=== PATIENT | female | born 1980 | race Caucasian/White ===

== ENCOUNTER 2019-10-04 12:33 | Inpatient (IN) | payer OTHER ==
[~2019-10-04] VITALS: Ht 172.7 cm; Wt 106.8 kg
[~2019-10-04 12:33] MED LIST: IBUP-1222 PO; LEVO150T5 PO; OXYC-302 PO; PREN1TAB60 PO
[2019-11-04] MEDS ORDERED: LACTATED RINGERS 1,000 ML IV SCH (05:33)
[2019-11-04] MEDS ORDERED: NEWBORN KIT ONE ×2 (05:42→07:45)
[2019-11-04] MEDS ORDERED: SODIUM CITRATE/CITRIC ACID 30 ML UDC ONE (05:57)
[2019-11-04] MEDS ORDERED: METOCLOPRAMIDE 5 MG/ML, 2ML ONE (05:57)
[2019-11-04] MEDS ORDERED: PLEASE ENTER HEIGHT AND WEIGHT MC SCH (06:00)
[2019-11-04] MEDS ORDERED: SODIUM CITRATE/CITRIC ACID 30 ML UDC PO ONE (06:00)
[2019-11-04] MEDS ORDERED: LACTATED RINGERS 1,000 ML IVBOLUS ONE (06:00)
[2019-11-04] MEDS ORDERED: METOCLOPRAMIDE 5 MG/ML, 2ML IV ONE (06:00)
[2019-11-04 06:27] LABS: BASOPHILS # (AUTO) 0.06 x10^3/uL (0-0.1); BASOPHILS % (AUTO) 1 % (0-1); EOSINOPHILS # (AUTO) 0.13 x10^3/uL (0-0.4); EOSINOPHILS % (AUTO) 1 % (1-7); LYMPHOCYTES # (AUTO) 2.31 x10^3/uL (1-3.4); LYMPHOCYTES % (AUTO) 19 % (22-44); MD NO; MEAN CORPUSCULAR HEMOGLOBIN 30.8 pg (27.0-34.8); MEAN CORPUSCULAR HGB CONC 33.6 g/dL (32.4-35.8); MEAN CORPUSCULAR VOLUME 91.5 fL (80-100); MONOCYTES % (AUTO) 8 % (2-9); NEUTROPHILS # (AUTO) 8.94 x10^3/uL (1.8-6.8); NEUTROPHILS % (AUTO) 72 % (42-75); PLATELET COUNT 177 x10^3/uL (130-400); RED CELL DISTRIBUTION WIDTH 14.5 % (9.6-15.2)
[2019-11-04] MEDS ORDERED: PREN-59 PO (07:05)
[2019-11-04] MEDS ORDERED: LEVO125T PO (07:05)
[2019-11-04] MEDS ORDERED: ONDANSETRON 2MG/ML, 2ML ONE (07:09)
[2019-11-04] MEDS ORDERED: CEFAZOLIN 1,000 MG ONE (07:09)
[2019-11-04] MEDS ORDERED: OXYTOCIN 10 UNITS/ML, 1ML ONE (07:09)
[2019-11-04] MEDS ORDERED: FENTANYL PF 100 MCG/2ML ONE (07:10)
[2019-11-04] MEDS ORDERED: HYDROmorphone 2 MG/ML, 1ML ONE (07:10)
[2019-11-04] MEDS: KETOROLAC 30 MG/1 ML IV SCH ×3 (08:30→21:12)
[2019-11-04] MEDS ORDERED: EPHEDRINE 50 MG/ML, 1ML ONE (08:37)
[2019-11-04] MEDS: LACTATED RINGERS 1,000 ML IV SCH ×4 (08:40→18:40)
[2019-11-04] MEDS ORDERED: OXYTOCIN 30U/ 0.9% NaCL 500ML 500 ML ONE (08:49)
[2019-11-04] MEDS: PRENATAL VIT/IRON/FA 1 EACH TABLET PO SCH (09:00)
[2019-11-04] MEDS ORDERED: MISOPROSTOL 200 MCG TABLET PO PRN (09:00)
[2019-11-04] MEDS: OXYTOCIN 30U/ 0.9% NaCL 500ML 500 ML IV SCH ×2 (09:36→18:40)
[2019-11-04] MEDS: LEVOTHYROXINE 150 MCG TABLET PO SCH (09:37)
[2019-11-04 10:30] VITALS: BP 112/64
[2019-11-04] MEDS: SIMETHICONE 80 MG CHEW TAB PO PRN ×2 (11:19→17:09)
[2019-11-04] MEDS: ACETAMINOPHEN 325 MG TABLET PO SCH ×3 (11:19→23:05)
[2019-11-04] MEDS: OXYcodone IR 5MG TABLET PO PRN ×3 (11:21→21:13)
[2019-11-04 14:12] LABS: BASOPHILS # (AUTO) 0.01 x10^3/uL (0-0.1); BASOPHILS % (AUTO) 0 % (0-1); EOSINOPHILS # (AUTO) 0.03 x10^3/uL (0-0.4); EOSINOPHILS % (AUTO) 0 % (1-7); LYMPHOCYTES # (AUTO) 1.67 x10^3/uL (1-3.4); LYMPHOCYTES % (AUTO) 10 % (22-44); MD NO; MEAN CORPUSCULAR HEMOGLOBIN 30.9 pg (27.0-34.8); MEAN CORPUSCULAR HGB CONC 33.3 g/dL (32.4-35.8); MEAN CORPUSCULAR VOLUME 92.8 fL (80-100); MEAN PLATELET VOLUME 7.8 fL (7.4-10.4); MONOCYTES # (AUTO) 0.72 x10^3/uL (0.2-0.8); MONOCYTES % (AUTO) 4 % (2-9); NEUTROPHILS # (AUTO) 14.43 x10^3/uL (1.8-6.8); NEUTROPHILS % (AUTO) 86 % (42-75); PLATELET COUNT 167 x10^3/uL (130-400); RED BLOOD COUNT 3.85 x10^6/uL (3.82-5.3); RED CELL DISTRIBUTION WIDTH 14.9 % (9.6-15.2)
[2019-11-04 16:15] VITALS: BP 105/72
[2019-11-04 20:00] VITALS: BP 101/68
[2019-11-04 23:40] VITALS: BP 117/81
[2019-11-05] MEDS: LACTATED RINGERS 1,000 ML IV SCH ×5 (00:40→16:40)
[2019-11-05] MEDS: OXYcodone IR 5MG TABLET PO PRN ×6 (02:16→19:34)
[2019-11-05] MEDS: KETOROLAC 30 MG/1 ML IV SCH ×4 (02:49→21:08)
[2019-11-05] MEDS: OXYTOCIN 30U/ 0.9% NaCL 500ML 500 ML IV SCH ×2 (04:40→14:40)
[2019-11-05] MEDS ORDERED: LEVOTHYROXINE 150 MCG TABLET PO SCH (06:00)
[2019-11-05] MEDS: ACETAMINOPHEN 325 MG TABLET PO SCH ×3 (06:29→19:35)
[2019-11-05] MEDS: LEVOTHYROXINE 150 MCG TABLET PO SCH (07:06)
[2019-11-05] MEDS: DOCUSATE 100 MG CAPSULE PO PRN ×2 (09:32→19:35)
[2019-11-05] MEDS: PRENATAL VIT/IRON/FA 1 EACH TABLET PO SCH (09:32)
[2019-11-05 09:40] VITALS: BP 119/77
[2019-11-05 20:00] VITALS: BP 112/73
[2019-11-06] MEDS: LACTATED RINGERS 1,000 ML IV SCH ×4 (00:40→10:40)
[2019-11-06] MEDS: OXYTOCIN 30U/ 0.9% NaCL 500ML 500 ML IV SCH ×2 (00:40→10:40)
[2019-11-06] MEDS: ACETAMINOPHEN 325 MG TABLET PO SCH ×4 (01:25→18:30)
[2019-11-06] MEDS: KETOROLAC 30 MG/1 ML IV SCH (03:21)
[2019-11-06] MEDS: OXYcodone IR 5MG TABLET PO PRN ×3 (03:22→22:21)
[2019-11-06] MEDS: LEVOTHYROXINE 150 MCG TABLET PO SCH (06:36)
[2019-11-06] MEDS: PRENATAL VIT/IRON/FA 1 EACH TABLET PO SCH (08:34)
[2019-11-06] MEDS: DOCUSATE 100 MG CAPSULE PO PRN ×2 (08:34→21:36)
[2019-11-06 08:45] VITALS: BP 117/81
[2019-11-06] MEDS: IBUPROFEN 600 MG TABLET PO SCH ×3 (09:15→21:36)
[2019-11-06 20:20] VITALS: BP 129/89
[2019-11-07] MEDS: ACETAMINOPHEN 325 MG TABLET PO SCH ×3 (00:34→12:26)
[2019-11-07] MEDS: IBUPROFEN 600 MG TABLET PO SCH ×2 (03:22→09:05)
[2019-11-07] MEDS: LEVOTHYROXINE 150 MCG TABLET PO SCH (06:09)
[2019-11-07] MEDS: OXYcodone IR 5MG TABLET PO PRN ×2 (06:10→12:05)
[2019-11-07] MEDS ORDERED: IBUP-1223 PO (08:42)
[2019-11-07] MEDS ORDERED: OXYC-302 PO (08:42)
[2019-11-07 08:58] VITALS: BP 122/84
[2019-11-07] MEDS: PRENATAL VIT/IRON/FA 1 EACH TABLET PO SCH (09:05)
[2019-11-07] MEDS: DOCUSATE 100 MG CAPSULE PO PRN (09:05)
== END 2019-11-07 14:00 | disposition home or self-care (01) | DRG 788 ==
LOC: LDIP 11-04 05:26 → 2NW 11-04 10:36
PROVIDERS: ADMIT Obstetrics & Gynecology Maternal & Fetal Medicine; ATTEND Obstetrics & Gynecology Maternal & Fetal Medicine
PROC: 10D00Z1 Extraction of Products of Conception, Low, Open Approach (ICD-10-PCS; principal; 2019-11-04)
DX: O34.211 Maternal care for low transverse scar from previous cesarean delivery (principal); O69.81X0 Labor and delivery complicated by cord around neck, without compression, not applicable or unspecified; Z3A.40 40 weeks gestation of pregnancy; Z37.0 Single live birth; O99.284 Endocrine, nutritional and metabolic diseases complicating childbirth; E03.9 Hypothyroidism, unspecified
CPT/HCPCS: 36415; 85025; 86592; 86850; 86900; G0378; J0690; J1170; J1885; J2405; J3010; J2590; J2765; J7120